=== PATIENT | male | born 1925 ===

== ENCOUNTER → 2016-11-14 | Outpatient (REF) | payer MEDICARE, OTHER ==
[~2016-11-14] MED LIST: /ATOR40TA OR; /CIPR75TA OR; /PANT40TA OR; ALLO100T OR; ALPHAGAN OU; ALTA10CA3 PO; ASPI325T OR; CIPR500T89 PO; FOLI1TAB OR; FOLITAB11 PO; FURO20TA2 OR; GLIM1TAB OR; HUMA100I SC; INSUDET SC; ISTA0.5S OU; LASI20TA OR; METH2.5T OR; TIMO0.5S OU; TIMO5OPD OD; TOPR100T OR; TOPR25TA PO; TYLE650T30 PO; [UNRECOGNIZED DRUG - OTHER] OR; cipro OR; glimepride PO; januvia OR; levimir SQ; lutein OR; novalog SQ
== END ==
LOC: M LAB REF 16:32
PROVIDERS: ATTEND Internal Medicine
DX: L40.59 Other psoriatic arthropathy (principal)

== ENCOUNTER → 2016-12-06 | Outpatient (REF) | payer MEDICARE, OTHER ==
[2016-12-06 18:15] LABS: PERCENT SATURATION 5.6 % (19.7-37.4); TOTAL IRON BINDING CAPACITY 444 UG/DL (250-450)
[2016-12-06 18:18] LABS: FOLATE > 24.0 NG/ML (>5.4); VITAMIN B12 LEVEL 548 PG/ML (247-911)
== END ==
LOC: M LAB REF 16:31
PROVIDERS: ATTEND Internal Medicine
DX: D64.9 Anemia, unspecified (principal)

== ENCOUNTER → 2017-01-08 | Outpatient (REF) | payer MEDICARE, OTHER ==
[2017-01-08 14:29] LABS: RETIC HEMOGLOBIN CONTENT CHr 36.2 PG (24-36); RETICULOCYTE % ADVIA2120 2.6 % (0.5-1.5)
[2017-01-08 14:31] LABS: PERCENT SATURATION 29.4 % (19.7-37.4)
== END ==
LOC: M LAB REF 12:34
PROVIDERS: ATTEND Internal Medicine
DX: D50.0 Iron deficiency anemia secondary to blood loss (chronic) (principal)

== ENCOUNTER → 2017-03-06 | Outpatient (REF) | payer MEDICARE, OTHER ==
[2017-03-06 13:46] LABS: URIC ACID 6.3 MG/DL (3.5-7.2)
== END ==
LOC: M LAB REF 12:53
PROVIDERS: ATTEND Internal Medicine
DX: L40.59 Other psoriatic arthropathy (principal); M10.00 Idiopathic gout, unspecified site

== ENCOUNTER → 2017-07-17 | Outpatient (REF) | payer MEDICARE, OTHER | LOC: M LAB REF 17:12 | PROVIDERS: ATTEND Internal Medicine | DX: L40.59 Other psoriatic arthropathy (principal) ==

== ENCOUNTER → 2017-11-13 | Outpatient (REF) | payer MEDICARE, OTHER ==
[2017-11-13 14:35] LABS: C REACTIVE PROTEIN QUANTITATIV 0.73 MG/DL (0.00-0.30)
== END ==
LOC: M LAB REF 14:04
DX: L40.59 Other psoriatic arthropathy (principal)
CPT/HCPCS: 86140